=== PATIENT | female | born 1990 | race Caucasian/White ===

== ENCOUNTER 2017-01-27 17:28 | Inpatient (IN) | payer OTHER ==
[2017-01-27 20:08] LABS: Hematocrit 33 % (35-47); Hemoglobin 11.1 g/dl (12.0-16.0); Mean Corpuscular HGB Conc 34 g/dl (31-36); Mean Corpuscular Hemoglobin 30 pg (27-31); Mean Corpuscular Volume 88 fL (80-97); Mean Platelet Volume 8 um3 (7.4-10.4); Red Blood Count 3.76 10^6/ul (4.0-5.4); Red Cell Distribution Width 14 % (10.5-15); White Blood Count 17.8 10^3/ul (3.5-10.8)
[2017-01-27] MEDS ORDERED: fentaNYL* 50 MCG/ML 2 ML VIAL (100 MCG VIAL) ONE (20:13)
[2017-01-27] MEDS ORDERED: OBEPIDURAL* 250 ML ONE (20:13)
[2017-01-27] MEDS: OBEPIDURAL* 250 ML EPIDURAL SCH (20:29)
[2017-01-27] MEDS ORDERED: Phenylephrine IV* 40 MCG/ML 10 ML SYRINGE IV PUSH PRN ×2 (20:51)
[2017-01-27] MEDS ORDERED: Famotidine TAB* 20 MG PO PRN (20:51)
[2017-01-27] MEDS ORDERED: Sodium Citrate/Citric Acid* 15 ML UDC PO PRN (20:51)
[2017-01-27] MEDS ORDERED: Lidocaine 1% MPF* 2 ML VIAL ONE (21:46)
[2017-01-28] MEDS ORDERED: Oxytocin in LR* 0 UNITS/0 ML BAG IVPB ONE (01:14)
[2017-01-28] MEDS ORDERED: Glycerin ADULT SUPP PR PRN (01:24)
[2017-01-28] MEDS ORDERED: OXYTOCIN* 10 UNITS/ML 1 ML VIAL IM ONE (01:24)
[2017-01-28] MEDS ORDERED: Acetaminophen TAB* 325 MG PO PRN (01:24)
[2017-01-28] MEDS: Witch Hazel PAD* JAR TOPICAL PRN ×2 (03:29→21:43)
[2017-01-28] MEDS: Ibuprofen TAB* 600 MG PO PRN ×4 (03:30→21:44)
[2017-01-28] MEDS: Dibucaine 1% 28.35 GM TUBE PR PRN ×2 (03:30→21:43)
[2017-01-28] MEDS ORDERED: Simethicone CHEW TAB* 80 MG PO SCH (08:30)
[2017-01-28] MEDS: Docusate CAP* 100 MG PO SCH ×3 (09:01→21:44)
[2017-01-28] MEDS: OBEPIDURAL* 250 ML EPIDURAL SCH (21:14)
[2017-01-29 07:05] LABS: Hematocrit 33 % (35-47); Hemoglobin 10.9 g/dl (12.0-16.0); Mean Corpuscular HGB Conc 33 g/dl (31-36); Mean Corpuscular Hemoglobin 29 pg (27-31); Mean Corpuscular Volume 89 fL (80-97); Mean Platelet Volume 8 um3 (7.4-10.4); Red Blood Count 3.72 10^6/ul (4.0-5.4); Red Cell Distribution Width 14 % (10.5-15); White Blood Count 13.3 10^3/ul (3.5-10.8)
[2017-01-29 08:42] VITALS: BP 113/68
[2017-01-29] MEDS: Docusate CAP* 100 MG PO SCH (08:44)
[2017-01-29] MEDS ORDERED: Ferrous Gluconate TAB* 324 MG TAB PO SCH (09:00)
== END 2017-01-29 10:05 | disposition home or self-care (01) | DRG 775 ==
LOC: MCHOBOUT 17:28 → MCHOB 19:20
PROVIDERS: ADMIT Midwife; ATTEND Midwife
PROC: 10E0XZZ Delivery of Products of Conception, External Approach (ICD-10-PCS; principal; 2017-01-28)
PROC: 10907ZC Drainage of Amniotic Fluid, Therapeutic from Products of Conception, Via Natural or Artificial Opening (ICD-10-PCS; 2017-01-28)
DX: O99.334 Smoking (tobacco) complicating childbirth (principal); F17.210 Nicotine dependence, cigarettes, uncomplicated; O87.4 Varicose veins of lower extremity in the puerperium; Z3A.38 38 weeks gestation of pregnancy; Z37.0 Single live birth
CPT/HCPCS: 36415; 85025; 86850; 86900; 86901; A9270-GY; J2590; J3010

== ENCOUNTER 2019-01-27 19:43 | Emergency (ER) | payer SELFPAY ==
--- NOTE | 2019-01-27 20:30 | ED ---
Medical Screening - HPI Summary HPI Summary: This pt is a 28 y/o female presenting to [facility] via [place] [employer] officers for a legal blood draw. Pt reports she has hx of fibromylagia and has been prescribed medications for this. She notes these medications aren't enough for her and went to look for other options today. 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 Pt denies any symptoms or complaints. She is eating in the ED as she reports being hungry. Pt states she was already clean for 10 days but relapsed today. Additionally reports she can't afford suboxone. - History of Current Complaint Chief Complaint: EDGeneral Stated Complaint: LEGAL BLOOD DRAW PER POLICE Time Seen by Provider: 01/27/19 20:26 Onset/Duration: Started Hours Ago, Atraumatic, Still Present Associated Signs and Symptoms: Negative - denies any symptoms. In the ED for a legal blood draw. PMH/Surg Hx/FS Hx/Imm Hx Endocrine/Hematology History: Denies: Hx Diabetes, Hx Thyroid Disease Cardiovascular History: Denies: Hx Hypertension Respiratory History: Denies: Hx Asthma, Hx Chronic Obstructive Pulmonary Disease (COPD) GI History: Denies: Hx Ulcer Musculoskeletal History: Reports: Hx Fibromyalgia - Surgical History Surgical History: Yes Surgery Procedure, Year, and Place: t&a Infectious Disease History: Yes Infectious Disease History: Reports: Hx Hepatitis - C, but now cured Denies: Hx Clostridium Difficile, Hx Human Immunodeficiency Virus (HIV), Hx of Known/Suspected MRSA, Hx Shingles, Hx Tuberculosis, Hx Known/Suspected VRE, Hx Known/Suspected VRSA, History Other Infectious Disease, Traveled Outside the [place] in Last 30 Days - Family History Known Family History: Negative: Cardiac Disease, Hypertension, Diabetes - Social History Alcohol Use: None Substance Use Type: Reports: None Smoking Status (MU): Former Smoker Type: Cigarettes Amount Used/How Often: 1/3 PPD Length of Time of Smoking/Using Tobacco: 9 years Have You Smoked in the Last Year: Yes Review of Systems Negative: Fever Cardiovascular: Negative Respiratory: Negative Gastrointestinal: Negative Neurological: Negative All Other Systems Reviewed And Are Negative: Yes Physical Exam - Summary Physical Exam Summary: VITAL SIGNS: Reviewed. GENERAL: Patient is a well-developed and nourished female who is lying comfortable in the stretcher. Patient is not in any acute respiratory distress. HEAD AND FACE: Normocephalic EYES: PERRLA, EOMI x 2. EARS: Hearing grossly intact. MOUTH: Oropharynx within normal limits. NECK: Supple, trachea is midline, no adenopathy, no JVD, no carotid bruit. CHEST: Symmetric, no tenderness at palpation LUNGS: Clear to auscultation bilaterally. No wheezing or crackles. CVS: Regular rate and rhythm, S1 and S2 present, no murmurs or gallops appreciated. ABDOMEN: Soft, non-tender. Bowel sounds are normal. No abdominal abnormal pulsations. EXTREMITIES: Full ROM in all major joints, no edema, no cyanosis or clubbing. NEURO: Alert and oriented x 3. No acute neurological deficits. Speech is normal and follows commands. SKIN: Dry and warm Triage Information Reviewed: Yes Vital Signs On Initial Exam: Initial Vitals Temp Pulse Resp BP Pulse Ox 99.0 F 102 18 145/100 98 01/27/19 20:00 01/27/19 20:00 01/27/19 20:00 01/27/19 20:00 01/27/19 20:00 Vital Signs Reviewed: Yes Diagnostics - Vital Signs Vital Signs Temp Pulse Resp BP Pulse Ox 01/27/19 20:00 99.0 F 102 18 145/100 98 - Laboratory Lab Statement: Any lab studies that have been ordered have been reviewed, and results considered in the medical decision making process. Course/Dx - Course Assessment/Plan: Pt is a 28 y/o female presenting to [facility] via [place] [employer] officers for a legal blood draw. Pt reports she has hx of fibromylagia and has been prescribed medications for this. She notes these medications aren't enough for her and went to look for other options today. 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 Pt denies any symptoms or complaints. She is eating in the ED as she reports being hungry. Pt states she was already clean for 10 days but relapsed today. Additionally reports she can't afford suboxone. On exam, pt is alert and oriented x3. Patient had blood drawn by the nurse. Pt was discharged back to police custody. - Diagnoses Provider Diagnoses: Encounter for blood-drug test Discharge - Sign-Out/Discharge Documenting (check all that apply): Patient Departure - Discharge to police custody Patient Received Moderate/Deep Sedation with Procedure: No - Discharge Plan Condition: Stable Disposition: LAW ENFORCEMENT/COURT Referrals: Marie Gil MD [Primary Care Provider] - Additional Instructions: PLEASE FOLLOW UP WITH YOUR PRIMARY CARE PROVIDER IN 2-3 DAYS. RETURN TO THE ED FOR ANY WORSENING OR NEW SYMPTOMS. - Billing Disposition and Condition Condition: STABLE Disposition: Law Enforcement/Court - Attestation Statements Document Initiated by Dylanibe: Yes Documenting Scribe: Noreen Hernandez Provider For Whom Scribe is Documenting (Include Credential): Tomy Schreiber MD Scribe Attestation: Noreen Simpson, scribed for Tomy Schreiber MD on 01/27/19 at 2100. Scribe Documentation Reviewed: Yes Provider Attestation: The documentation as recorded by the Noreen cunha accurately reflects the service I personally performed and the decisions made by , Tomy Schreiber MD Status of Scribe Document: Viewed
[2019-01-27 20:41] VITALS: BP 125/92
== END 2019-01-27 20:39 ==
LOC: ED 19:43
DX: Z02.83 Encounter for blood-alcohol and blood-drug test (principal); M79.7 Fibromyalgia; Z87.891 Personal history of nicotine dependence
CPT/HCPCS: 99283